=== PATIENT | female | born 1955 | race African-American/Black ===

== ENCOUNTER 2018-07-10 08:16 | Observation (INO) | payer SELFPAY ==
[~2018-07-10] VITALS: Ht 160 cm; Wt 76.3 kg
--- NOTE | 2018-07-10 08:37 | EKG ---
[facility] [address] [place] [address] Test Date: 2018-07-10 Test Time: 08:25:06 Pat Name: FILIBERTO CONTRERAS Department: Room: Gender: F Players Assistant: : 1955 Requested By: MAURICIO TAY Order Number: [id number] Reading MD: Chucho Nguyen MD Measurements Intervals [place] Rate: 69 P: 27 AL: 158 QRS: 3 QRSD: 76 T: 52 QT: 394 QTc: 424 Interpretive Statements SINUS RHYTHM Electronically Signed On 07-13-2018 10:40:40 MANAGER CONCRETE by Chucho Nguyen MD
[2018-07-10] MEDS ORDERED: ASPIRIN 325 MG TABLET PO ONE (08:45)
[2018-07-10] MEDS ORDERED: METOPROLOL TARTRATE 5 MG/5 ML VIAL. IVP ONE (08:45)
[2018-07-10] MEDS ORDERED: NITROGLYCERIN SUBLINGUAL 0.4 MG BOTTLE OF 25. SL PRN ×2 (08:45→10:30)
[2018-07-10] MEDS ORDERED: LIDO:MAALOX 1:1 20 ML SINGLE DOSE. SWSW ONE (08:45)
[2018-07-10 08:47] LABS: BASO % 1 % (0-3); EOS % 1 % (0-3); HEMATOCRIT 41.5 % (36.0-47.0); HEMOGLOBIN 13.5 g/dL (12.0-15.5); LYMPH # 2.5 x10^3/uL (1.0-4.8); LYMPH % 62 % (24-48); MEAN CORPUSCULAR HEMOGLOBIN 28 pg (25-35); MEAN CORPUSCULAR HGB CONC 33 g/dL (31-37); MEAN CORPUSCULAR VOLUME 87 fL (79-100); MONO # 0.4 x10^3/uL (0.0-1.1); MONO % 11 % (0-9); NEUT # 1.1 x10^3uL (1.8-7.7); NEUT % 27 % (31-73); PLATELET COUNT 231 x10^3/uL (140-400); RED BLOOD COUNT 4.76 x10^6/uL (3.50-5.40); RED CELL DISTRIBUTION WIDTH 14.8 % (11.5-14.5)
--- NOTE | 2018-07-10 08:49 | RAD ---
Examination: CHEST AP ONLY History: Chest pain Comparison/Correlation: None Findings: Portable upright frontal view chest was obtained. Heart size and pulmonary vasculature are normal. No infiltrate or effusion. No pneumothorax. Tortuosity of the thoracic aorta is present. Bony structures are unremarkable. Impression: No active disease. Electronically signed by: Juan Gaines MD (07/10/2018 8:45 AM) [id number]
[2018-07-10 09:01] LABS: CALCIUM 8.9 mg/dL (8.5-10.1); CREATININE 0.9 mg/dL (0.6-1.0); POTASSIUM 3.8 mmol/L (3.5-5.1)
--- NOTE | 2018-07-10 09:05 | PHYS DOC ---
Past Medical History Past Medical History: No Pertinent History Past Surgical History: Hysterectomy Alcohol Use: None Drug Use: None Adult General Chief Complaint Chief Complaint: CHEST PAIN HPI HPI Patient is a 63 year old female who presents with chest pain that woke her up at approximately 5:00 this morning. She states that she does have a past history of GERD. She does not take any at home medications. She has no history of heart disease, hypertension or diabetes. She states that she does have a family history of hypertension. She states that she did chew on some Tums and was starting to feel better but her daughter told her that if she was experiencing pain she needs to call 911. She was given nitroglycerin glycerin as well as aspirin in the ambulance. She states that currently her pain is resolved. She denies diaphoresis, radiation of the pain into her neck or arm, or back pain. She has had a cough for approximately 2 days. She denies fever and states that the cough is nonproductive. Review of Systems Review of Systems Constitutional: Denies fever or chills [] Eyes: Denies change in visual acuity, redness, or eye pain [] HENT: Denies nasal congestion or sore throat [] Respiratory: See history of present illness Cardiovascular: No additional information not addressed in HPI [] GI: See history of present illness : Denies dysuria or hematuria [] Musculoskeletal: Denies back pain or joint pain [] Integument: Denies rash or skin lesions [] Neurologic: Denies headache, focal weakness or sensory changes [] Endocrine: Denies polyuria or polydipsia [] All other systems were reviewed and found to be within normal limits, except as documented in this note. Current Medications Current Medications Current Medications Medications (Trade) Dose Ordered Sig/[facility] Start Time Stop Time Status Last Admin Dose Admin Aspirin (Stefanie Aspirin) 325 mg 1X ONCE 07/10/18 08:45 07/10/18 08:46 DC Metoprolol Tartrate (Lopressor Vial) 5 mg 1X ONCE 07/10/18 08:45 07/10/18 08:46 DC 07/10/18 08:53 5 MG Multi-Ingredient Mouthwash/Gargle (Gi Cocktail) 20 ml 1X ONCE 07/10/18 08:45 07/10/18 08:46 DC 07/10/18 08:53 20 ML Nitroglycerin (Nitrostat) 0.4 mg PRN Q5MIN PRN 07/10/18 08:45 07/10/18 08:46 DC Allergies Allergies Allergies Coded Allergies Type Severity Reaction Last Updated Verified No Known Drug Allergies 07/10/18 No Physical Exam Physical Exam Constitutional: Well developed, well nourished, no acute distress, non-toxic appearance. [] HENT: Normocephalic, atraumatic, bilateral external ears normal, oropharynx moist, no oral exudates, nose normal. [] Eyes: PERRLA, EOMI, conjunctiva normal, no discharge. [] Neck: Normal range of motion, no tenderness, supple, no stridor. [] Cardiovascular:Heart rate regular rhythm, no murmur [] Lungs & Thorax: Bilateral breath sounds clear to auscultation [] Abdomen: Bowel sounds normal, soft, no tenderness, no masses, no pulsatile masses. [] Skin: Warm, dry, no erythema, no rash. [] Back: No tenderness, no CVA tenderness. [] Extremities: No tenderness, no cyanosis, no clubbing, ROM intact, no edema. [] Neurologic: Alert and oriented X 3, normal motor function, normal sensory function, no focal deficits noted. [] Psychologic: Affect normal, judgement normal, mood normal. [] Current Patient Data Vital Signs Vital Signs Date Time Temp Pulse Resp B/P (MAP) Pulse Ox O2 Delivery O2 Flow Rate FiO2 07/10/18 09:20 78 168/88 (114) 07/10/18 08:24 98.7 20 100 Room Air 98.7 Lab Values Laboratory Tests Test 07/10/18 08:33 07/10/18 09:40 White Blood Count 4.0 x10^3/uL (4.0-11.0) Red Blood Count 4.76 x10^6/uL (3.50-5.40) Hemoglobin 13.5 g/dL (12.0-15.5) Hematocrit 41.5 % (36.0-47.0) Mean Corpuscular Volume 87 fL (79-100) Mean Corpuscular Hemoglobin 28 pg (25-35) Mean Corpuscular Hemoglobin Concent 33 g/dL (31-37) Red Cell Distribution Width 14.8 % (11.5-14.5) H Platelet Count 231 x10^3/uL (140-400) Neutrophils (%) (Auto) 27 % (31-73) L Lymphocytes (%) (Auto) 62 % (24-48) H Monocytes (%) (Auto) 11 % (0-9) H Eosinophils (%) (Auto) 1 % (0-3) Basophils (%) (Auto) 1 % (0-3) Neutrophils # (Auto) 1.1 x10^3uL (1.8-7.7) L Lymphocytes # (Auto) 2.5 x10^3/uL (1.0-4.8) Monocytes # (Auto) 0.4 x10^3/uL (0.0-1.1) Eosinophils # (Auto) 0.0 x10^3/uL (0.0-0.7) Basophils # (Auto) 0.0 x10^3/uL (0.0-0.2) Segmented Neutrophils % 31 % (35-66) L Lymphocytes % 54 % (24-48) H Atypical Lymphocytes % (Manual) 6 % (0-0) H Monocytes % 7 % (0-10) Basophils % 2 % (0-3) Platelet Estimate Adequate (ADEQUATE) Sodium Level 143 mmol/L (136-145) Potassium Level 3.8 mmol/L (3.5-5.1) Chloride Level 105 mmol/L (98-107) Carbon Dioxide Level 25 mmol/L (21-32) Anion Gap 13 (6-14) Blood Urea Nitrogen 18 mg/dL (7-20) Creatinine 0.9 mg/dL (0.6-1.0) Estimated GFR (Cockcroft-Gault) 63.0 BUN/Creatinine Ratio 20 (6-20) Glucose Level 96 mg/dL (70-99) Calcium Level 8.9 mg/dL (8.5-10.1) Total Bilirubin 0.4 mg/dL (0.2-1.0) Aspartate Amino Transferase (AST) 15 U/L (15-37) Alanine Aminotransferase (ALT) 14 U/L (14-59) Alkaline Phosphatase 57 U/L (46-116) Creatine Kinase 82 U/L (26-192) Creatine Kinase MB (Mass) 0.5 ng/mL (0.0-3.6) Creatine Kinase MB Relative Index 0.6 % (0-4) Troponin I Quantitative < 0.017 ng/mL (0.000-0.055) Total Protein 7.2 g/dL (6.4-8.2) Albumin 3.7 g/dL (3.4-5.0) Albumin/Globulin Ratio 1.1 (1.0-1.7) Urine Collection Type Unknown Urine Color Yellow Urine Clarity Clear Urine pH 5.5 Urine Specific [place] 1.025 Urine Protein Negative mg/dL (NEG-TRACE) Urine Glucose (UA) Negative mg/dL (NEG) Urine Ketones (Stick) Negative mg/dL (NEG) Urine Blood Moderate (NEG) Urine Nitrite Negative (NEG) Urine Bilirubin Negative (NEG) Urine Urobilinogen Dipstick 0.2 mg/dL (0.2 mg/dL) Urine Leukocyte Esterase Small (NEG) Urine RBC 3-5 /HPF (0-2) Urine WBC 5-10 /HPF (0-4) Urine Squamous Epithelial Cells Many /LPF Urine Bacteria Many /HPF (0-FEW) Urine Mucus Marked /LPF Laboratory Tests 07/10/18 08:33 Laboratory Tests 07/10/18 08:33 EKG EKG [] Radiology/Procedures Radiology/Procedures [] PATIENT: FILIBERTO CONTRERAS ACCOUNT: [id number] : 1955 LOCATION: ER AGE: 63 SEX: F EXAM STATUS: PRE ER ORD. PHYSICIAN: MAURICIO TAY APRN REASON: chest pain PROCEDURE: CHEST AP ONLY Examination: CHEST AP ONLY History: Chest pain Comparison/Correlation: None Findings: Portable upright frontal view chest was obtained. Heart size and pulmonary vasculature are normal. No infiltrate or effusion. No pneumothorax. Tortuosity of the thoracic aorta is present. Bony structures are unremarkable. Impression: No active disease. Electronically signed by: Juan Martinez MD (07/10/2018 8:45 AM) [id number] DICTATED and SIGNED BY: JUAN MARTINEZ MD DATE: 07/10/18 0843 Course & Med Decision Making Course & Med Decision Making Pertinent Labs and Imaging studies reviewed. (See chart for details) []The patient is being admitted for observation and serial troponins. She is in agreement with this plan. She has been accepted to Dr. Chavez's service. Cardiology has been consulted. Meme Disclaimer Dragon Disclaimer This electronic medical record was generated, in whole or in part, using a voice recognition dictation system. Departure Departure Impression: Primary Impression: Chest pain Disposition: ADMITTED INPATIENT Admitting Physician: Neil Calloway Condition: STABLE Referrals: UNKNOWN PCP NAME (PCP) MAURICIO TAY APRN Jul 10, 2018 09:05
[2018-07-10 09:07] LABS: ALBUMIN 3.7 g/dL (3.4-5.0); ALBUMIN/GLOBULIN RATIO 1.1 (1.0-1.7); TOTAL BILIRUBIN 0.4 mg/dL (0.2-1.0); TOTAL PROTEIN 7.2 g/dL (6.4-8.2)
[2018-07-10 09:49] LABS: BILIRUBIN,URINE NEGATIVE (NEG); CLARITY,URINE CLEAR; COLOR,URINE YELLOW; NITRITE,URINE NEGATIVE (NEG); PH,URINE 5.5; PROTEIN,URINE NEGATIVE (NEG-TRACE); UROBILINOGEN,URINE 0.2 mg/dL (0.2 mg/dL)
[2018-07-10 09:59] LABS: BACTERIA,URINE MANY /HPF (0-FEW); SQUAMOUS EPITHELIAL CELL,UR MANY /LPF
[2018-07-10 10:08] LABS: % BASOS 2 % (0-3); % MONOS 7 % (0-10); % SEGS 31 % (35-66); PLT ESTIMATE ADEQUATE (ADEQUATE)
[2018-07-10 10:18] LABS: % ATYL 6 % (0-0); % LYMPHS 54 % (24-48)
[2018-07-10] MEDS ORDERED: ONDANSETRON PF 4 MG/2 ML VIAL. IV PRN (10:30)
[2018-07-10] MEDS ORDERED: MORPHINE SULFATE 4 MG/ML VIAL. IV PRN (10:30)
[2018-07-10] MEDS ORDERED: levOFLOXacin PER PHARMACY. MC PRN (10:45)
--- NOTE | 2018-07-10 11:20 | PDOC1 ---
History and Physical Date of Admission Date of Admission DATE: 07/10/18 TIME: 11:18 Identification/Chief Complaint Chief Complaint SEEN IN ER ,presented with chest pain that woke her up at approximately 5:00 this morning. She states that she does have a past history of GERD. . She has no history of heart disease, hypertension or diabetes. She states that she does have a family history of hypertension. states that she did chew on some Tums and was starting to feel better but her daughter told her that if she was experiencing pain she needs to call 911. was given nitroglycerin glycerin as well as aspirin in the ambulance. She states that currently her pain is resolved. She denies diaphoresis, radiation of the pain into her neck or arm, or back pain. She has had a cough for approximately 2 days. BP VERY HIGH IN ER Past Medical History Cardiovascular: HTN Past Surgical History Past Surgical History: No pertinent history Family History Family History: Heart Disease, High Cholestrol, Hypertension Social History Smoke: <1 pack per day ALCOHOL: none Drugs: None Current Medications Current Medications Current Medications Aspirin (Stefanie Aspirin) 325 mg 1X ONCE PO ; Start 07/10/18 at 08:45; Stop 07/10 at 08:46; Status DC Nitroglycerin (Nitrostat) 0.4 mg PRN Q5MIN PRN SL CHEST PAIN; Start 07/10/18 at 08:45; Stop 07/10/18 at 08:46; Status DC Multi-Ingredient Mouthwash/Gargle (Gi Cocktail) 20 ml 1X ONCE SWSW Last administered on 07/10/18at 08:53; Start 07/10/18 at 08:45; Stop 07/10/18 at 08:46 ; Status DC Metoprolol Tartrate (Lopressor Vial) 5 mg 1X ONCE IVP Last administered on 04/17at 08:53; Start 07/10/18 at 08:45; Stop 07/10/18 at 08:46; Status DC Ondansetron HCl (Zofran) 4 mg PRN Q8HRS PRN IV NAUSEA/VOMITING; Start 07/10/18 at 10:30; Stop 07/11/18 at 10:29 Morphine Sulfate (Morphine Sulfate) 4 mg PRN Q2HR PRN IV PAIN; Start 07/10/18 at 10:30; Stop 07/11/18 at 10:29 Sodium Chloride 1,000 ml @ 125 mls/hr Q8H IV ; Start 07/10/18 at 10:30; Stop at 10:29 Nitroglycerin (Nitrostat) 0.4 mg PRN Q5MIN PRN SL CHEST PAIN; Start 07/10/18 at 10:30; Stop 07/11/18 at 10:29 Levofloxacin/ Dextrose (Levaquin Per Pharmacy) 1 each PRN DAILY PRN MC SEE COMMENTS; Start 07/10/18 at 10:45; Status UNV Levofloxacin/ Dextrose 100 ml @ 100 mls/hr 1X ONCE IV ; Start 07/10/18 at 11: 00; Stop 07/10/18 at 11:59 Allergies Allergies: Coded Allergies: No Known Drug Allergies (Unverified , 07/10/18) ROS Review of System Review of Systems Review of Systems Constitutional: Denies fever or chills [] Eyes: Denies change in visual acuity, redness, or eye pain [] HENT: Denies nasal congestion or sore throat [] Respiratory: See history of present illness Cardiovascular: No additional information not addressed in HPI [] GI: See history of present illness : Denies dysuria or hematuria [] Musculoskeletal: Denies back pain or joint pain [] Integument: Denies rash or skin lesions [] Neurologic: Denies headache, focal weakness or sensory changes [] Endocrine: Denies polyuria or polydipsia [] 14 PT systems were reviewed and found to be within normal limits, except as documented Respiratory: YES: Cough, Shortness of breath, SOB with excertion, Sputum Changes Musculoskeletal: No Gait Disturbance, No Joint Pain, No Joint Stiffness, No Joint Swelling, No Muscle Pain, No Muscular Weakness, No Pain In:, No Swelling In:, No Other Physical Exam Physical Exam Physical Exam Physical Exam Constitutional: Well developed, well nourished, no acute distress, non-toxic appearance. [] HENT: Normocephalic, atraumatic, bilateral external ears normal, oropharynx moist, no oral exudates, nose normal. [] Eyes: PERRLA, EOMI, conjunctiva normal, no discharge. [] Neck: Normal range of motion, no tenderness, supple, no stridor. [] Cardiovascular:Heart rate regular rhythm, no murmur [] Lungs & Thorax: Bilateral MOIST CRACKLES BASES [] Abdomen: Bowel sounds normal, soft, no tenderness, no masses, no pulsatile masses. [] Skin: Warm, dry, no erythema, no rash. [] Back: No tenderness, no CVA tenderness. [] Extremities: No tenderness, no cyanosis, no clubbing, ROM intact, no edema. [] Neurologic: Alert and oriented X 3, normal motor function, normal sensory function, no focal deficits noted. [] Psychologic: Affect normal, judgement normal, mood normal. [] General: Alert, Oriented X3, Cooperative, mild distress HEENT: Atraumatic Heart: RRR Breasts: Not examined Abdomen: Soft Rectal Exam: not examined PELVIC: Examination not indicated Extremities: No clubbing, No cyanosis Neuro: Normal speech, Cranial nerves 3-12 NL Psych/Mental Status: Mental status NL, Mood NL Vitals Vitals Vital Signs Date Time Temp Pulse Resp B/P (MAP) Pulse Ox O2 Delivery O2 Flow Rate FiO2 07/10/18 10:29 64 161/87 (111) 07/10/18 08:24 98.7 20 100 Room Air 98.7 Labs Labs Laboratory Tests Test 07/10/18 08:33 07/10/18 09:40 White Blood Count 4.0 x10^3/uL (4.0-11.0) Red Blood Count 4.76 x10^6/uL (3.50-5.40) Hemoglobin 13.5 g/dL (12.0-15.5) Hematocrit 41.5 % (36.0-47.0) Mean Corpuscular Volume 87 fL (79-100) Mean Corpuscular Hemoglobin 28 pg (25-35) Mean Corpuscular Hemoglobin Concent 33 g/dL (31-37) Red Cell Distribution Width 14.8 % (11.5-14.5) Platelet Count 231 x10^3/uL (140-400) Neutrophils (%) (Auto) 27 % (31-73) Lymphocytes (%) (Auto) 62 % (24-48) Monocytes (%) (Auto) 11 % (0-9) Eosinophils (%) (Auto) 1 % (0-3) Basophils (%) (Auto) 1 % (0-3) Neutrophils # (Auto) 1.1 x10^3uL (1.8-7.7) Lymphocytes # (Auto) 2.5 x10^3/uL (1.0-4.8) Monocytes # (Auto) 0.4 x10^3/uL (0.0-1.1) Eosinophils # (Auto) 0.0 x10^3/uL (0.0-0.7) Basophils # (Auto) 0.0 x10^3/uL (0.0-0.2) Segmented Neutrophils % 31 % (35-66) Lymphocytes % 54 % (24-48) Atypical Lymphocytes % (Manual) 6 % (0-0) Monocytes % 7 % (0-10) Basophils % 2 % (0-3) Platelet Estimate Adequate (ADEQUATE) Sodium Level 143 mmol/L (136-145) Potassium Level 3.8 mmol/L (3.5-5.1) Chloride Level 105 mmol/L (98-107) Carbon Dioxide Level 25 mmol/L (21-32) Anion Gap 13 (6-14) Blood Urea Nitrogen 18 mg/dL (7-20) Creatinine 0.9 mg/dL (0.6-1.0) Estimated GFR (Cockcroft-Gault) 63.0 BUN/Creatinine Ratio 20 (6-20) Glucose Level 96 mg/dL (70-99) Calcium Level 8.9 mg/dL (8.5-10.1) Total Bilirubin 0.4 mg/dL (0.2-1.0) Aspartate Amino Transf (AST/SGOT) 15 U/L (15-37) Alanine Aminotransferase (ALT/SGPT) 14 U/L (14-59) Alkaline Phosphatase 57 U/L (46-116) Creatine Kinase 82 U/L (26-192) Creatine Kinase MB (Mass) 0.5 ng/mL (0.0-3.6) Creatine Kinase MB Relative Index 0.6 % (0-4) Troponin I Quantitative < 0.017 ng/mL (0.000-0.055) Total Protein 7.2 g/dL (6.4-8.2) Albumin 3.7 g/dL (3.4-5.0) Albumin/Globulin Ratio 1.1 (1.0-1.7) Urine Collection Type Unknown Urine Color Yellow Urine Clarity Clear Urine pH 5.5 Urine Specific [place] 1.025 Urine Protein Negative mg/dL (NEG-TRACE) Urine Glucose (UA) Negative mg/dL (NEG) Urine Ketones (Stick) Negative mg/dL (NEG) Urine Blood Moderate (NEG) Urine Nitrite Negative (NEG) Urine Bilirubin Negative (NEG) Urine Urobilinogen Dipstick 0.2 mg/dL (0.2 mg/dL) Urine Leukocyte Esterase Small (NEG) Urine RBC 3-5 /HPF (0-2) Urine WBC 5-10 /HPF (0-4) Urine Squamous Epithelial Cells Many /LPF Urine Bacteria Many /HPF (0-FEW) Urine Mucus Marked /LPF Laboratory Tests Test 07/10/18 08:33 07/10/18 09:40 White Blood Count 4.0 x10^3/uL (4.0-11.0) Red Blood Count 4.76 x10^6/uL (3.50-5.40) Hemoglobin 13.5 g/dL (12.0-15.5) Hematocrit 41.5 % (36.0-47.0) Mean Corpuscular Volume 87 fL (79-100) Mean Corpuscular Hemoglobin 28 pg (25-35) Mean Corpuscular Hemoglobin Concent 33 g/dL (31-37) Red Cell Distribution Width 14.8 % (11.5-14.5) Platelet Count 231 x10^3/uL (140-400) Neutrophils (%) (Auto) 27 % (31-73) Lymphocytes (%) (Auto) 62 % (24-48) Monocytes (%) (Auto) 11 % (0-9) Eosinophils (%) (Auto) 1 % (0-3) Basophils (%) (Auto) 1 % (0-3) Neutrophils # (Auto) 1.1 x10^3uL (1.8-7.7) Lymphocytes # (Auto) 2.5 x10^3/uL (1.0-4.8) Monocytes # (Auto) 0.4 x10^3/uL (0.0-1.1) Eosinophils # (Auto) 0.0 x10^3/uL (0.0-0.7) Basophils # (Auto) 0.0 x10^3/uL (0.0-0.2) Segmented Neutrophils % 31 % (35-66) Lymphocytes % 54 % (24-48) Atypical Lymphocytes % (Manual) 6 % (0-0) Monocytes % 7 % (0-10) Basophils % 2 % (0-3) Platelet Estimate Adequate (ADEQUATE) Sodium Level 143 mmol/L (136-145) Potassium Level 3.8 mmol/L (3.5-5.1) Chloride Level 105 mmol/L (98-107) Carbon Dioxide Level 25 mmol/L (21-32) Anion Gap 13 (6-14) Blood Urea Nitrogen 18 mg/dL (7-20) Creatinine 0.9 mg/dL (0.6-1.0) Estimated GFR (Cockcroft-Gault) 63.0 BUN/Creatinine Ratio 20 (6-20) Glucose Level 96 mg/dL (70-99) Calcium Level 8.9 mg/dL (8.5-10.1) Total Bilirubin 0.4 mg/dL (0.2-1.0) Aspartate Amino Transf (AST/SGOT) 15 U/L (15-37) Alanine Aminotransferase (ALT/SGPT) 14 U/L (14-59) Alkaline Phosphatase 57 U/L (46-116) Creatine Kinase 82 U/L (26-192) Creatine Kinase MB (Mass) 0.5 ng/mL (0.0-3.6) Creatine Kinase MB Relative Index 0.6 % (0-4) Troponin I Quantitative < 0.017 ng/mL (0.000-0.055) Total Protein 7.2 g/dL (6.4-8.2) Albumin 3.7 g/dL (3.4-5.0) Albumin/Globulin Ratio 1.1 (1.0-1.7) Urine Collection Type Unknown Urine Color Yellow Urine Clarity Clear Urine pH 5.5 Urine Specific [place] 1.025 Urine Protein Negative mg/dL (NEG-TRACE) Urine Glucose (UA) Negative mg/dL (NEG) Urine Ketones (Stick) Negative mg/dL (NEG) Urine Blood Moderate (NEG) Urine Nitrite Negative (NEG) Urine Bilirubin Negative (NEG) Urine Urobilinogen Dipstick 0.2 mg/dL (0.2 mg/dL) Urine Leukocyte Esterase Small (NEG) Urine RBC 3-5 /HPF (0-2) Urine WBC 5-10 /HPF (0-4) Urine Squamous Epithelial Cells Many /LPF Urine Bacteria Many /HPF (0-FEW) Urine Mucus Marked /LPF VTE Prophylaxis Ordered VTE Prophylaxis Devices: Yes VTE Pharmacological Prophylaxi: Yes Assessment/Plan Assessment/Plan IMPRESSION 1. Chest pain 2. pneumonia, clinically evident by exam 3. hypertensive urgency 4. tobacco abuse 5. possible UTI plan admit serial troponin i iv levaquin 500MG Q 24 HRS dvt prophylaxis iv hydralazine prn sbp > 170 NORVASC 5 MG PO Q AM LISINOPRIL 2.5 MG PO BID EDUCATION ON SMOKING CESSATION PROVIDED SL NTG PRN O2 SUPPORT 40 MIN CC TIME ALONDRA BORGES MD Jul 10, 2018 11:20
[2018-07-10] MEDS: hydrALAZINE 20 MG/ML VIAL. IVP PRN ×2 (12:55→13:16)
[2018-07-10] MEDS: amLODIPine BESYLATE 5 MG TABLET PO SCH (13:17)
[2018-07-10] MEDS: LISINOPRIL 5 MG TABLET. PO SCH ×2 (13:19→21:00)
[2018-07-10] MEDS: IV NORMAL SALINE 1000ML BAG 1,000 ML IV SCH ×2 (13:20→18:30)
[2018-07-10] MEDS: ENOXAPARIN 40 MG/0.4 ML SYRINGE. SQ SCH (14:07)
[2018-07-10] MEDS ORDERED: LABETALOL 20 MG/4 ML DISP.SYRIN. IVP PRN (14:15)
--- NOTE | 2018-07-10 14:15 | PDOC2 ---
CARDIAC CONSULT DATE OF CONSULT Date of Consult DATE: 07/10/18 TIME: 14:06 REASON FOR CONSULT Reason for Consult: Chest pain REFERRING PHYSICIAN Referring Physician: Taylor Barber APRN SOURCE Source: Chart review, Patient HISTORY OF PRESENT ILLNESS HISTORY OF PRESENT ILLNESS This is a 63 yo female who presented secondary to chest pain. Patient reports experiencing chest pain intermittently. Located under her left breast. Describes as pressure. Mostly occurs at night. Usually improved with Tums. This morning, woke up with chest pain. [place] like GERD. Seems to worsen after she got up. Took Aleve, which seemed to improve. Had MISHRA and blurred vision. Was dizzy and slightly diaphoretic. Called daughter who encouraged her to go to the ED for further evaluation. Patient has had an intermittent history of hypertension. Reports her systolic blood pressure to have recently been in the 160-170 as most recent clinic visits. Although, she also reports her blood pressure to occasionally to be low. Was started on blood pressure medication years ago, but provider had her discontinue them after one week as she "didn't need them." PAST MEDICAL HISTORY Cardiovascular: HTN Pulmonary: No pertinent hx CENTRAL NERVOUS SYSTEM: Other (migraines) GI: GERD Heme/Onc: No pertinent hx Hepatobiliary: No pertinent hx Psych: No pertinent hx Musculoskeletal: Osteoarthritis Rheumatologic: No pertinent hx Infectious disease: No pertinent hx ENT: No pertinent hx Renal/: No pertinent hx Endocrine: No pertinent hx Dermatology: No pertinent hx PAST SURGICAL HISTORY Past Surgical History: Hysterectomy FAMILY HISTORY Family History: Coronary Artery Disease, Diabetes, Hypertension SOCIAL HISTORY Smoke: <1 pack per day ALCOHOL: none Drugs: None Lives: with Family CURRENT MEDICATIONS CURRENT MEDICATIONS Current Medications Medications (Trade) Dose Ordered Sig/Hayden Route PRN Reason Start Time Stop Time Status Last Admin Dose Admin Multi-Ingredient Mouthwash/Gargle (Gi Cocktail) 20 ml 1X ONCE SWSW 07/10/18 08:45 07/10/18 08:46 DC 07/10/18 08:53 Metoprolol Tartrate (Lopressor Vial) 5 mg 1X ONCE IVP 07/10/18 08:45 07/10/18 08:46 DC 07/10/18 08:53 Sodium Chloride 1,000 ml @ 125 mls/hr Q8H IV 07/10/18 10:30 07/11/18 10:29 07/10/18 13:20 Levofloxacin/ Dextrose 100 ml @ 100 mls/hr 1X ONCE IV 07/10/18 11:00 07/10/18 11:59 DC 07/10/18 13:19 Hydralazine HCl (Apresoline Inj) 10 mg PRN Q6HRS PRN IVP ELEVATED BP, SEE COMMENTS 07/10/18 12:15 07/10/18 13:16 Lisinopril (Prinivil) 2.5 mg BID PO 07/10/18 12:30 07/10/18 13:19 Amlodipine Besylate (Norvasc) 5 mg DAILY PO 07/10/18 12:30 07/10/18 13:17 Enoxaparin Sodium (Lovenox 40mg Syringe) 40 mg Q24H SQ 07/10/18 13:00 07/10/18 14:07 ALLERGIES ALLERGIES: Coded Allergies: No Known Drug Allergies (Unverified , 07/10/18) ROS Review of System 14 point ROS conducted with pertinent positives noted above in HPI PHYSICAL EXAM General: Alert, Oriented X3, Cooperative, No acute distress HEENT: Atraumatic Lungs: Clear to auscultation, Normal air movement Heart: Regular rate, Normal S1, Normal S2, No murmurs Abdomen: Soft, No tenderness Extremities: No edema, Normal pulses Skin: No significant lesion Neuro: Normal speech, Sensation intact Psych/Mental Status: Mental status NL, Mood NL MUSCULOSKELETAL: No deformity VITALS VITALS Vital Signs Date Time Temp Pulse Resp B/P (MAP) Pulse Ox O2 Delivery O2 Flow Rate FiO2 07/10/18 13:19 68 198/98 07/10/18 11:40 20 07/10/18 08:24 98.7 100 Room Air 98.7 LABS Lab: Laboratory Tests Test 07/10/18 08:33 07/10/18 09:40 07/10/18 12:00 White Blood Count 4.0 x10^3/uL (4.0-11.0) Red Blood Count 4.76 x10^6/uL (3.50-5.40) Hemoglobin 13.5 g/dL (12.0-15.5) Hematocrit 41.5 % (36.0-47.0) Mean Corpuscular Volume 87 fL (79-100) Mean Corpuscular Hemoglobin 28 pg (25-35) Mean Corpuscular Hemoglobin Concent 33 g/dL (31-37) Red Cell Distribution Width 14.8 % (11.5-14.5) Platelet Count 231 x10^3/uL (140-400) Neutrophils (%) (Auto) 27 % (31-73) Lymphocytes (%) (Auto) 62 % (24-48) Monocytes (%) (Auto) 11 % (0-9) Eosinophils (%) (Auto) 1 % (0-3) Basophils (%) (Auto) 1 % (0-3) Neutrophils # (Auto) 1.1 x10^3uL (1.8-7.7) Lymphocytes # (Auto) 2.5 x10^3/uL (1.0-4.8) Monocytes # (Auto) 0.4 x10^3/uL (0.0-1.1) Eosinophils # (Auto) 0.0 x10^3/uL (0.0-0.7) Basophils # (Auto) 0.0 x10^3/uL (0.0-0.2) Segmented Neutrophils % 31 % (35-66) Lymphocytes % 54 % (24-48) Atypical Lymphocytes % (Manual) 6 % (0-0) Monocytes % 7 % (0-10) Basophils % 2 % (0-3) Platelet Estimate Adequate (ADEQUATE) Sodium Level 143 mmol/L (136-145) Potassium Level 3.8 mmol/L (3.5-5.1) Chloride Level 105 mmol/L (98-107) Carbon Dioxide Level 25 mmol/L (21-32) Anion Gap 13 (6-14) Blood Urea Nitrogen 18 mg/dL (7-20) Creatinine 0.9 mg/dL (0.6-1.0) Estimated GFR (Cockcroft-Gault) 63.0 BUN/Creatinine Ratio 20 (6-20) Glucose Level 96 mg/dL (70-99) Calcium Level 8.9 mg/dL (8.5-10.1) Total Bilirubin 0.4 mg/dL (0.2-1.0) Aspartate Amino Transf (AST/SGOT) 15 U/L (15-37) Alanine Aminotransferase (ALT/SGPT) 14 U/L (14-59) Alkaline Phosphatase 57 U/L (46-116) Creatine Kinase 82 U/L (26-192) Creatine Kinase MB (Mass) 0.5 ng/mL (0.0-3.6) Creatine Kinase MB Relative Index 0.6 % (0-4) Troponin I Quantitative < 0.017 ng/mL (0.000-0.055) < 0.017 ng/mL (0.000-0.055) Total Protein 7.2 g/dL (6.4-8.2) Albumin 3.7 g/dL (3.4-5.0) Albumin/Globulin Ratio 1.1 (1.0-1.7) Urine Collection Type Unknown Urine Color Yellow Urine Clarity Clear Urine pH 5.5 Urine Specific [place] 1.025 Urine Protein Negative mg/dL (NEG-TRACE) Urine Glucose (UA) Negative mg/dL (NEG) Urine Ketones (Stick) Negative mg/dL (NEG) Urine Blood Moderate (NEG) Urine Nitrite Negative (NEG) Urine Bilirubin Negative (NEG) Urine Urobilinogen Dipstick 0.2 mg/dL (0.2 mg/dL) Urine Leukocyte Esterase Small (NEG) Urine RBC 3-5 /HPF (0-2) Urine WBC 5-10 /HPF (0-4) Urine Squamous Epithelial Cells Many /LPF Urine Bacteria Many /HPF (0-FEW) Urine Mucus Marked /LPF ASSESSMENT/PLAN ASSESSMENT/PLAN 1. Chest pain, atypical. Trop negative x 2- AMI ruled out. Possibly secondary to #2. 2. Accelerated hypertension; remains labile 3. GERD; PPI 4. Tobaccoism; discussed/encouraged cessation Recommendations ASA Check lipids- statin if indicated Norvasc and Lisinopril initiated- uptitrate per BP response Labetalol IV PRN Check echo to assess LV systolic function/presence of WMA Given risk factors, consider further ischemia workup based upon above diagnostics. LEIDY GIRON APRN Jul 10, 2018 14:15
--- NOTE | 2018-07-10 14:52 | EKG ---
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
--- NOTE | 2018-07-10 16:12 | CARD ---
MR#: [id number] Date of Study: 07/10/2018 Ordering Physician: ALONDRA BORGES, Referring Physician: ALONDRA BORGES Tech: Rose Altman TYRONE APPROVED REPORT EXAM: Two-dimensional and M-mode echocardiogram with Doppler and color Doppler. Other Information Quality : AverageHR: 60bpm Rhythm : NSR INDICATION Chest Pain 2D DIMENSIONS RVDd2.7 (2.9-3.5cm)Left Atrium(2D)2.9 (1.6-4.0cm) IVSd1.4 (0.7-1.1cm)Aortic Root(2D)2.4 (2.0-3.7cm) LVDd4.5 (3.9-5.9cm)LVOT Diameter1.9 (1.8-2.4cm) PWd1.0 (0.7-1.1cm)IVSs1.6 (0.8-1.2cm) LVDs3.2 (2.5-4.0cm)PWs1.2 (0.8-1.2cm) LVEF(%)56.0 (>50%) M-Mode DIMENSIONS Left Atrium(MM)3.00 (2.5-4.0cm) Aortic Valve AoV Peak Lenny.12.0cm/sAoV VTI27.0cm AO Peak GR.6.3mmHgLVOT VTI 20.87cm AO Mean GR.3mmHgAVA (VMAX)2.22cm2 DEONNA (VTI)2.22cm2 Mitral Valve MV E Velocity0.6cm/sMV DECEL PILH982kg MV A Velocity0.8cm/sMV E Mean Gr.3mmHg E/A Ratio0.8 TDI Lateral E' P. V7.00cm/sMedial E' P. V10.00cm/s E/Lateral E'0.1E/Medial E'0.1 Pulmonary Valve PV Peak Drllocmp06.0cm/sPV Peak Grad.7mmHg Tricuspid Valve TR P. [id number]/sRAP [id number] TR Peak Gr.[id number] LEFT VENTRICLE The left ventricle is normal size. Proximal septal thickening is noted. The left ventricular systolic function is normal and the ejection fraction is within normal range. The Ejection Fraction is 55-60% . There is normal LV segmental wall motion. Transmitral Doppler flow pattern is Grade I-abnormal rela xation pattern. RIGHT VENTRICLE The right ventricle is normal size. There is normal right ventricular wall thickness. The right ventr icular systolic function is normal. ATRIA The left atrium size is normal. The right atrium size is normal. The interatrial septum is intact wit h no evidence for an atrial septal defect or patent foramen ovale as noted on 2-D or Doppler imaging. AORTIC VALVE The aortic valve is trileaflet. The aortic valve is mildly thickened but opens well. Doppler and [place] r Flow revealed no significant aortic regurgitation. There is no significant aortic valvular stenosis . MITRAL VALVE The mitral valve is normal in structure and function. There is no evidence of mitral valve prolapse. There is no mitral valve stenosis. Doppler and Color-flow revealed mild mitral regurgitation. TRICUSPID VALVE The tricuspid valve is normal in structure and function. Doppler and Color Flow revealed trace tricus pid regurgitation. The PA pressure was estimated at 23 mmHg. There is no tricuspid valve prolapse or vegetation. There is no tricuspid valve stenosis. PULMONIC VALVE Doppler and Color Flow revealed no pulmonic valvular regurgitation. There is no pulmonic valvular ruby nosis. GREAT VESSELS The aortic root is normal in size. The ascending aorta is normal in size. The IVC is normal in size a nd collapses >50% with inspiration. PERICARDIAL EFFUSION There is no evidence of significant pericardial effusion. Critical Notification Critical Value: No <Conclusion> The left ventricular systolic function is normal and the ejection fraction is within normal range. Th e Ejection Fraction is 55-60%. There is normal LV segmental wall motion. Signed by : Chucho Nguyen, Electronically Approved : 07/10/2018 16:09:53
[2018-07-10] MEDS ORDERED: amLODIPine BESYLATE 5 MG TABLET PO ONE (17:00)
[2018-07-10] MEDS ORDERED: LISINOPRIL 10 MG TABLET PO ONE (17:00)
[2018-07-10 20:00] VITALS: BP 185/96
--- NOTE | 2018-07-10 20:00 | NUR ---
Patient assessment completed patient complained of pain, anxiety R/T being in hospital and having 2 mentally challenged nephews and an Aunt with dementia at home that she cares for and has no one else to help her with. Patient verbalized that left her because she cares for family and he could not handle it. She stated she doesn't have contact with some of her children and recently lost a sister to cancer. Patient becomes tearful and anxious talking about it. RN explained to patient that she has to find was to try and relax and take care of herself to be able to care for her family. Patient verbalized that she is putting them in 24 hour care soon.
[2018-07-10] MEDS ORDERED: CYCLOBENZAPRINE 10 MG TABLET. PO PRN (21:00)
[2018-07-10 23:10] VITALS: BP 145/96
[2018-07-11] MEDS: IV NORMAL SALINE 1000ML BAG 1,000 ML IV SCH (02:30)
[2018-07-11 03:10] VITALS: BP 160/83
[2018-07-11 07:00] VITALS: BP 158/91
[2018-07-11 07:22] LABS: CHOLESTEROL/HDL RATIO 3.5
[2018-07-11] MEDS ORDERED: PANTOPRAZOLE 40 MG TABLET.DR. PO SCH (07:30)
[2018-07-11] MEDS ORDERED: ASPIRIN ENTERIC COATED 81 MG TABLET.DR. PO SCH (08:00)
[2018-07-11] MEDS: amLODIPine BESYLATE 5 MG TABLET PO SCH (08:21)
[2018-07-11] MEDS: LISINOPRIL 5 MG TABLET. PO SCH (08:21)
[2018-07-11 11:00] VITALS: BP 149/81
--- NOTE | 2018-07-11 12:56 | NUR ---
SS following for discharge planning. SS reviewed pt chart. Pt is self pay pt from home and currently on room air. No discharge needs noted at this time. SS will continue to follow for pending discharge needs.
[2018-07-11] MEDS: ENOXAPARIN 40 MG/0.4 ML SYRINGE. SQ SCH (13:00)
--- NOTE | 2018-07-11 13:10 | PDOC ---
Provider Note Provider Note Will plan for DC on lisinopril 10mg daily and amlodipine 10mg daily. She will need close f/u with her PCP for BMP and f/u BP checks for residential mgmt. Discussed with patient and family. KYLEE DELGADO MD Jul 11, 2018 13:10
[2018-07-11] MEDS ORDERED: LISI10TA2 PO (13:26)
[2018-07-11] MEDS ORDERED: AMLO10TA8 PO (13:27)
[2018-07-11] MEDS ORDERED: CYCL10TA2 PO (13:30)
[2018-07-11] MEDS ORDERED: CIPR500T PO (13:31)
--- NOTE | 2018-07-11 13:53 | DS ---
DATE OF DISCHARGE: 07/11/2018 ADMISSION DIAGNOSIS: Chest pain. DISCHARGE DIAGNOSES: Atypical chest pain, suspect gastroesophageal reflux disease; resolving hypertension, clinical pneumonia, tobacco abuse. CONSULTS: Dr. Nguyen. PROCEDURES: None. HOSPITAL COURSE: The patient is a pleasant middle-aged female who presented with accelerated hypertension and chest pain. She was admitted. We consulted Cardiology. We checked serial enzymes, serial EKGs. Her cardiac workup so far is negative. We suspect she might have GERD. She could have had chest pain from her accelerated hypertension as well. Today, I did examine her, she looks great. She wants to go home. I plan to discharge with p.o. antibiotics and antihypertensive. She has agreed to quit smoking. DISPOSITION: Home. ACTIVITY: As tolerated. DIET: Low sodium. MEDICATIONS: Please see the MRAD. TOTAL TIME: 33 minutes. BRIANL Luke HALL DO DR: LUCA/tyler JOB#: [id number] / [id number]
--- NOTE | 2018-07-11 14:06 | PDOC ---
PROGRESS NOTES Chief Complaint Chief Complaint Atypical chest pain Pneumonia Hypertensive urgency GERD Tobacco use History of Present Illness History of Present Illness Patient was seen resting in bed in the ICU today. Her daughter was at bedside. Discussed case with daughter and nurse. Patient is feeling much better today. She is ready to go home. She notes that she is committed to quitting smoking. She complains of slight cough. Hoping for discharge today. Vitals Vitals Vital Signs Date Time Temp Pulse Resp B/P (MAP) Pulse Ox O2 Delivery O2 Flow Rate FiO2 07/11/18 11:00 98.2 97 16 149/81 (103) 98 Room Air 98.2 Physical Exam General: Alert, Oriented X3, Cooperative, No acute distress Heart: Regular rate, Normal S1, Normal S2, No murmurs Lungs: Crackles, Other (no rhonchi) Abdomen: Soft, No tenderness Extremities: No clubbing, No cyanosis Skin: No rashes, No significant lesion Labs LABS Laboratory Tests Test 07/10/18 17:55 07/11/18 06:00 Troponin I Quantitative < 0.017 ng/mL (0.000-0.055) < 0.017 ng/mL (0.000-0.055) Triglycerides Level 59 mg/dL (0-150) Cholesterol Level 199 mg/dL (0-200) LDL Cholesterol, Calculated 130 mg/dL (0-100) VLDL Cholesterol, Calculated 12 mg/dL (0-40) Non-HDL Cholesterol Calculated 142 mg/dL (0-129) HDL Cholesterol 57 mg/dL (40-60) Cholesterol/HDL Ratio 3.5 Review of Systems Review of Systems Complains of weakness and cough. Denies abdominal pain, nausea, vomiting, diarrhea. Assessment and Plan Assessmemt and Plan Assessment: Atypical chest pain Pneumonia Hypertensive urgency GERD Tobacco use Plan: 1. ICU monitoring 2. Added PO Ciprofloxacin 3. IV labetalol 4. Home medications 5. PT/OT 6. Counseled on smoking cessation 7. Discharge today Comment Review of Relevant I have reviewed the following items kathy (where applicable) has been applied. Labs Laboratory Tests Test 07/10/18 08:33 07/10/18 09:40 07/10/18 12:00 07/10/18 17:55 White Blood Count 4.0 x10^3/uL (4.0-11.0) Red Blood Count 4.76 x10^6/uL (3.50-5.40) Hemoglobin 13.5 g/dL (12.0-15.5) Hematocrit 41.5 % (36.0-47.0) Mean Corpuscular Volume 87 fL (79-100) Mean Corpuscular Hemoglobin 28 pg (25-35) Mean Corpuscular Hemoglobin Concent 33 g/dL (31-37) Red Cell Distribution Width 14.8 % (11.5-14.5) Platelet Count 231 x10^3/uL (140-400) Neutrophils (%) (Auto) 27 % (31-73) Lymphocytes (%) (Auto) 62 % (24-48) Monocytes (%) (Auto) 11 % (0-9) Eosinophils (%) (Auto) 1 % (0-3) Basophils (%) (Auto) 1 % (0-3) Neutrophils # (Auto) 1.1 x10^3uL (1.8-7.7) Lymphocytes # (Auto) 2.5 x10^3/uL (1.0-4.8) Monocytes # (Auto) 0.4 x10^3/uL (0.0-1.1) Eosinophils # (Auto) 0.0 x10^3/uL (0.0-0.7) Basophils # (Auto) 0.0 x10^3/uL (0.0-0.2) Segmented Neutrophils % 31 % (35-66) Lymphocytes % 54 % (24-48) Atypical Lymphocytes % (Manual) 6 % (0-0) Monocytes % 7 % (0-10) Basophils % 2 % (0-3) Platelet Estimate Adequate (ADEQUATE) Sodium Level 143 mmol/L (136-145) Potassium Level 3.8 mmol/L (3.5-5.1) Chloride Level 105 mmol/L (98-107) Carbon Dioxide Level 25 mmol/L (21-32) Anion Gap 13 (6-14) Blood Urea Nitrogen 18 mg/dL (7-20) Creatinine 0.9 mg/dL (0.6-1.0) Estimated GFR (Cockcroft-Gault) 63.0 BUN/Creatinine Ratio 20 (6-20) Glucose Level 96 mg/dL (70-99) Calcium Level 8.9 mg/dL (8.5-10.1) Total Bilirubin 0.4 mg/dL (0.2-1.0) Aspartate Amino Transf (AST/SGOT) 15 U/L (15-37) Alanine Aminotransferase (ALT/SGPT) 14 U/L (14-59) Alkaline Phosphatase 57 U/L (46-116) Creatine Kinase 82 U/L (26-192) Creatine Kinase MB (Mass) 0.5 ng/mL (0.0-3.6) Creatine Kinase MB Relative Index 0.6 % (0-4) Troponin I Quantitative < 0.017 ng/mL (0.000-0.055) < 0.017 ng/mL (0.000-0.055) < 0.017 ng/mL (0.000-0.055) Total Protein 7.2 g/dL (6.4-8.2) Albumin 3.7 g/dL (3.4-5.0) Albumin/Globulin Ratio 1.1 (1.0-1.7) Urine Collection Type Unknown Urine Color Yellow Urine Clarity Clear Urine pH 5.5 Urine Specific [place] 1.025 Urine Protein Negative mg/dL (NEG-TRACE) Urine Glucose (UA) Negative mg/dL (NEG) Urine Ketones (Stick) Negative mg/dL (NEG) Urine Blood Moderate (NEG) Urine Nitrite Negative (NEG) Urine Bilirubin Negative (NEG) Urine Urobilinogen Dipstick 0.2 mg/dL (0.2 mg/dL) Urine Leukocyte Esterase Small (NEG) Urine RBC 3-5 /HPF (0-2) Urine WBC 5-10 /HPF (0-4) Urine Squamous Epithelial Cells Many /LPF Urine Bacteria Many /HPF (0-FEW) Urine Mucus Marked /LPF Test 07/11/18 06:00 Troponin I Quantitative < 0.017 ng/mL (0.000-0.055) Triglycerides Level 59 mg/dL (0-150) Cholesterol Level 199 mg/dL (0-200) LDL Cholesterol, Calculated 130 mg/dL (0-100) VLDL Cholesterol, Calculated 12 mg/dL (0-40) Non-HDL Cholesterol Calculated 142 mg/dL (0-129) HDL Cholesterol 57 mg/dL (40-60) Cholesterol/HDL Ratio 3.5 Laboratory Tests Test 07/10/18 17:55 07/11/18 06:00 Troponin I Quantitative < 0.017 ng/mL (0.000-0.055) < 0.017 ng/mL (0.000-0.055) Triglycerides Level 59 mg/dL (0-150) Cholesterol Level 199 mg/dL (0-200) LDL Cholesterol, Calculated 130 mg/dL (0-100) VLDL Cholesterol, Calculated 12 mg/dL (0-40) Non-HDL Cholesterol Calculated 142 mg/dL (0-129) HDL Cholesterol 57 mg/dL (40-60) Cholesterol/HDL Ratio 3.5 Medications Current Medications Aspirin (Stefanie Aspirin) 325 mg 1X ONCE PO ; Start 07/10/18 at 08:45; Stop 07/10 at 08:46; Status DC Nitroglycerin (Nitrostat) 0.4 mg PRN Q5MIN PRN SL CHEST PAIN; Start 07/10/18 at 08:45; Stop 07/10/18 at 08:46; Status DC Multi-Ingredient Mouthwash/Gargle (Gi Cocktail) 20 ml 1X ONCE SWSW Last administered on 07/10/18at 08:53; Start 07/10/18 at 08:45; Stop 07/10/18 at 08:46 ; Status DC Metoprolol Tartrate (Lopressor Vial) 5 mg 1X ONCE IVP Last administered on 04/17at 08:53; Start 07/10/18 at 08:45; Stop 07/10/18 at 08:46; Status DC Ondansetron HCl (Zofran) 4 mg PRN Q8HRS PRN IV NAUSEA/VOMITING; Start 07/10/18 at 10:30; Stop 07/11/18 at 10:29; Status DC Morphine Sulfate (Morphine Sulfate) 4 mg PRN Q2HR PRN IV PAIN Last administered on 07/10/18at 19:59; Start 07/10/18 at 10:30; Stop 07/11/18 at 10:29 ; Status DC Sodium Chloride 1,000 ml @ 125 mls/hr Q8H IV Last administered on 07/10/18at 13 :20; Start 07/10/18 at 10:30; Stop 07/11/18 at 10:29; Status DC Nitroglycerin (Nitrostat) 0.4 mg PRN Q5MIN PRN SL CHEST PAIN; Start 07/10/18 at 10:30; Stop 07/11/18 at 10:29; Status DC Levofloxacin/ Dextrose (Levaquin Per Pharmacy) 1 each PRN DAILY PRN MC SEE COMMENTS; Start 07/10/18 at 10:45 Levofloxacin/ Dextrose 100 ml @ 100 mls/hr 1X ONCE IV Last administered on 04/17at 13:19; Start 07/10/18 at 11:00; Stop 07/10/18 at 11:59; Status DC Levofloxacin/ Dextrose 100 ml @ 100 mls/hr Q24H IV Last administered on at 12:50; Start 07/11/18 at 12:00 Hydralazine HCl (Apresoline Inj) 10 mg PRN Q6HRS PRN IVP ELEVATED BP, SEE COMMENTS Last administered on 07/10/18 13:16; Start 07/10/18 at 12:15 Lisinopril (Prinivil) 2.5 mg BID PO Last administered on 07/11/18 08:21; Start 07/10/18 at 12:30 Amlodipine Besylate (Norvasc) 5 mg DAILY PO Last administered on 07/11/18 08: 21; Start 07/10/18 at 12:30 Enoxaparin Sodium (Lovenox 40mg Syringe) 40 mg Q24H SQ Last administered on 04/17at 14:07; Start 07/10/18 at 13:00 Labetalol HCl (Normodyne Iv Push) 10 mg PRN Q2HR PRN IVP HYPERTENSION, SEE COMMENTS Last administered on 07/10/18at 15:15; Start 07/10/18 at 14:15 Amlodipine Besylate (Norvasc) 5 mg 1X ONCE PO Last administered on 07/10/18 16:50; Start 07/10/18 at 17:00; Stop 07/10/18 at 17:01; Status DC Lisinopril (Prinivil) 20 mg 1X ONCE PO Last administered on 07/10/18 16:50; Start 07/10/18 at 17:00; Stop 07/10/18 at 17:01; Status DC Aspirin (Ecotrin) 81 mg DAILYWBKFT PO Last administered on 07/11/18 08:21; Start 07/11/18 at 08:00 Pantoprazole Sodium (Protonix) 40 mg DAILYAC PO Last administered on 2/12/19at 08:21; Start 07/11/18 at 07:30 Cyclobenzaprine HCl (Flexeril) 10 mg PRN Q8HRS PRN PO MUSCLE SPASMS Last administered on 07/10/18at 21:00; Start 07/10/18 at 21:00 Lactobacillus Rhamnosus (Culturelle) 1 cap BID PO ; Start 07/11/18 at 21:00 Active Scripts Active Reported Ciprofloxacin Hcl 500 Mg Tablet 1 Tab PO BID 7 Days Cyclobenzaprine Hcl 10 Mg Tablet 1 Tab PO PRN Q8HRS PRN Amlodipine Besylate 10 Mg Tablet 10 Mg PO DAILY Lisinopril 10 Mg Tablet 1 Tab PO DAILY Vitals/I & O Vital Sign - Last 24 Hours 07/10/18 07/10/18 07/10/18 07/10/18 15:15 16:50 16:50 19:59 Pulse 68 68 68 Resp 18 B/P (MAP) 198/98 174/83 174/83 Pulse Ox 97 O2 Delivery Room Air 07/10/18 07/10/18 07/10/18 07/10/18 20:00 20:00 20:30 21:00 Temp 98.6 98.6 Pulse 68 68 Resp 18 B/P (MAP) 185/96 (125) 200/96 Pulse Ox 100 O2 Delivery Room Air Room Air Room Air 07/10/18 07/11/18 07/11/18 07/11/18 23:10 03:10 07:00 08:00 Temp 97.8 97.6 98.0 97.8 97.6 98.0 Pulse 68 71 80 Resp 20 18 B/P (MAP) 145/96 (112) 160/83 (108) 158/91 (113) Pulse Ox 100 98 97 O2 Delivery Room Air Room Air Room Air Room Air 07/11/18 07/11/18 07/11/18 08:21 08:21 11:00 Temp 98.2 98.2 Pulse 100 71 97 Resp 16 B/P (MAP) 158/91 160/83 149/81 (103) Pulse Ox 98 O2 Delivery Room Air Intake and Output 07/10/18 07/10/18 07/11/18 15:00 23:00 07:00 Intake Total 200 ml 640 ml Balance 200 ml 640 ml CASTLE,NIAL K III DO Jul 11, 2018 14:06
--- NOTE | 2018-07-11 14:14 | NUR ---
Discharge Note: FILIBERTO CONTRERAS [facility] [place] ICU Discharge instructions and discharge home medications reviewed with Patient and a copy given. All questions have been answered and understanding verbalized. The following instructions and handouts were given: Diet, activity, medication list and follow up instructions provided to patient. Patient instructed to check blood pressure daily and as needed. Discontinued lines and drains: Peripheral IVs discontinued and catheters intact. Patient discharged to Home or Self Care with Family Member via Ambulated
[2018-07-11] MEDS ORDERED: LACTOBACILLUS RHAMNOSUS GG 1 CAPSULE. PO SCH (21:00)
== END 2018-07-11 14:10 | disposition home or self-care (01) ==
LOC: ER 08:16 → 1 WEST ICU 10:16
PROVIDERS: ADMIT Family Medicine; ATTEND Family Medicine
DX: R07.89 Other chest pain (principal); I10 Essential (primary) hypertension; J18.9 Pneumonia, unspecified organism; K21.9 Gastro-esophageal reflux disease without esophagitis; I16.0 Hypertensive urgency; F17.210 Nicotine dependence, cigarettes, uncomplicated; Z90.710 Acquired absence of both cervix and uterus; Z83.3 Family history of diabetes mellitus; Z82.49 Family history of ischemic heart disease and other diseases of the circulatory system
CPT/HCPCS: 36415; 71045; 80053; 80061; 81001; 82553; 84484; 85007; 85025; 87086; 93005; 93306; 96365; 96366; 96372; 96375; 99284; G0378; J0360; J1650; J1956; J2270; J3490; J7030; 87186; G0379

== ENCOUNTER 2020-01-04 10:40 | Emergency (ER) | payer MEDICARE, MEDICAID ==
[~2020-01-04] VITALS: Ht 160 cm; Wt 70.0 kg
[~2020-01-04 10:40] MED LIST: AMLO10TA8 PO; CIPR500T PO; CYCL10TA2 PO; LISI10TA2 PO
[2020-01-04] MEDS ORDERED: hydroCHLOROthiazide 25 MG TABLET PO ONE (11:30)
[2020-01-04] MEDS ORDERED: CYCLOBENZAPRINE 10 MG TABLET. PO ONE (11:30)
[2020-01-04] MEDS ORDERED: HYDROcodone/APAP 5/325MG 1 TAB TABLET PO ONE (11:30)
--- NOTE | 2020-01-04 12:37 | PHYS DOC ---
Past Medical History Past Medical History: No Pertinent History Past Surgical History: Hysterectomy Smoking Status: Current Every Day Smoker Alcohol Use: None Drug Use: None General Adult EDM: Chief Complaint: BACK PAIN OR INJURY HPI: HPI: 64-year-old female presenting to the emergency department today with back pain. She was doing laundry when she went to reach for something and she felt like she pulled a muscle in her back. This happened prior to arrival. She has a moderate to severe pulling sensation in her back that is nonradiating. She comes in by EMS. She reports EMS was able to put some ice on it and press on it which helped. She denies a history of any medical conditions other than a history of hypertension which is now treated just with diet and exercise. She has a blood pressure monitor at home. Past medical history: History of hypertension currently treated Surgical history history of partial hysterectomy Social history smokes, drinks occasionally. No known drug allergies. Review of systems is negative for chest pain shortness of breath vomiting fevers chills or headache. All other review of systems negative. ED course: 64-year-old female presenting with a back pain that is moderate to severe. On arrival she was significantly hypertensive. Patient does not want any diagnostic tests believing that she pulled her muscle. She understands the risks and benefits associated with this decision including potentially or disability. Her daughter is in the room with her. I would like to honor her desires. She has the ability to make medical decisions. If she would let us do diagnostic testing I would do an angiogram of her aorta to exclude dissection or aneurysm along with blood work and EKG troponin. I gave her a dose of oral blood pressure medication here. Her blood pressure remains significantly elevated. She does not want me to start IV medications for her blood pressure or to admit her to the hospital for her blood pressure. AMA I informed the patient of their right to a medical screening exam and any treatment and/or stabilization that may be necessary regardless of their ability to pay. The patient appears to have intact insight, judgment, and reason. In my opinion, this patient has the capacity to make decisions. The patient presented with back pain and I am concerned that this could be aortic dissection, aortic aneurysm, myocardial infarction, pyelonephritis or other serious causes of back pain. My initial plan prior to the pt expressing the desire to leave was CT angiogram of the chest abdomen pelvis with urine analysis EKG blood testing including troponin. I explained the risk of and disability to the patient in plain language which they were able to demonstrate in their own words verbal understanding. I discussed the limitations of the workup thus far included but were not limited to diagnostic testing. It concerns me that the patient's blood pressure is so high. She believes it is because of pain.. The pt has verbalized understanding of my concerns. I offered alternatives to the therapy including f/u with pcp. I recommended the pt follow up with pcp today or tomorrow or to return to the ED if she changes her mind. I explained that at any time if the patient changed their mind, we are always open and would be happy to have them back. The patient refused further care and then left against medical advice. Heart Score: Risk Factors: Risk Factors: DM, Current or recent (<one month) smoker, HTN, HLP, family history of CAD, obesity. Risk Scores: Score 0 - 3: 2.5% MACE over next 6 weeks - Discharge Home Score 4 - 6: 20.3% MACE over next 6 weeks - Admit for Clinical Observation Score 7 - 10: 72.7% MACE over next 6 weeks - Early Invasive Strategies Current Medications: Current Medications Medications (Trade) Dose Ordered Sig/Hayden Start Time Stop Time Status Last Admin Dose Admin Acetaminophen/ Hydrocodone Bitart (Lortab 5/325) 2 tab 1X ONCE 01/04/20 11:30 01/04/20 11:31 DC 01/04/20 11:53 2 TAB Cyclobenzaprine HCl (Flexeril) 10 mg 1X ONCE 01/04/20 11:30 01/04/20 11:31 DC 01/04/20 11:53 10 MG Hydrochlorothiazide (Hydrodiuril) 25 mg 1X ONCE 01/04/20 11:30 01/04/20 11:31 DC 01/04/20 11:53 25 MG Allergies: Allergies: Allergies Coded Allergies Type Severity Reaction Last Updated Verified No Known Drug Allergies 07/10/18 No Physical Exam: PE: Constitutional: Well developed, well nourished, no acute distress, non-toxic appearance. [] HENT: Normocephalic, atraumatic, bilateral external ears normal, oropharynx moist, no oral exudates, nose normal. [] Eyes: PERRLA, EOMI, conjunctiva normal, no discharge. [] Neck: Normal range of motion, no tenderness, supple, no stridor. [] Cardiovascular:Heart rate regular rhythm, no murmur [] Lungs & Thorax: Bilateral breath sounds clear to auscultation [] Abdomen: Bowel sounds normal, soft, no tenderness, no masses, no pulsatile masses. Negative rebound tenderness. Skin: Warm, dry, no erythema, no rash. [] Back: patient has tenderness along the paraspinal musculature of the right side. Nontender midline. extremities: No tenderness, no cyanosis, no clubbing, ROM intact, no edema. Palpable pulses in both upper extremities. Neurologic: Alert and oriented X 3, normal motor function, normal sensory function, no focal deficits noted. [] Psychologic: Affect normal, judgement normal, mood normal. [] Current Patient Data: Vital Signs: Vital Signs Date Time Temp Pulse Resp B/P (MAP) Pulse Ox O2 Delivery O2 Flow Rate FiO2 01/04/20 10:40 98.6 71 16 210/102 (138) 98 Room Air 98.6 EKG: EKG: [] Radiology/Procedures: Radiology/Procedures: [] Course & Med Decision Making: Course & Med Decision Making Pertinent Labs and Imaging studies reviewed. (See chart for details) [] Dragon Disclaimer: [email or web address] Disclaimer: This electronic medical record was generated, in whole or in part, using a voice recognition dictation system. Departure Departure Impression: Primary Impression: Acute back pain Additional Impression: Hypertension Disposition: AGAINST MEDICAL ADVICE Condition: GUARDED Referrals: UNKNOWN PCP NAME (PCP) Patient Instructions: Back Pain, Adult Additional Instructions: Return to the ED if you change your mind about investigating the cause of your pain. Scripts Cyclobenzaprine Hcl (CYCLOBENZAPRINE HCL) 5 Mg Tablet 1 TAB PO TID PRN PRN for PAIN, #10 TAB 0 Refills Prov: DIANA OWUSU MD 01/04/20 Hydrocodone Bit/Acetaminophen (HYDROCODONE-APAP 5-325 ) 1 Tab Tablet 1 TAB PO PRN Q8HRS PRN for sev, #12 TAB 0 Refills Prov: DIANA OWUSU MD 01/04/20 Justicifation of Admission Dx: Justifications for Admission: Justification of Admission Dx: N/A DIANA OWUSU MD Jan 04, 2020 12:37
[2020-01-04 12:41] VITALS: BP 209/102
[2020-01-04] MEDS ORDERED: CYCL5TAB PO (12:50)
[2020-01-04] MEDS ORDERED: HYDR-2761 PO (12:50)
== END 2020-01-04 12:52 | disposition left against medical advice (07) ==
LOC: ER 10:40
DX: M54.89 Other dorsalgia (principal); I10 Essential (primary) hypertension; F17.200 Nicotine dependence, unspecified, uncomplicated; Z90.711 Acquired absence of uterus with remaining cervical stump
CPT/HCPCS: 99285-25